=== PATIENT | female | born 1985 | race Two or more races ===

== ENCOUNTER 2020-09-23 17:04 | Inpatient (IN) | payer MEDICAID, SELFPAY ==
[2020-09-23 18:15] VITALS: BP 143/67; PULSE 75; RESP 18; TEMP 36.9; O2SAT 100; BMI 20.7
--- NOTE | 2020-09-23 21:59 | ED.GENADULT ---
HPI - General Adult General Chief complaint: Psychiatric Symptoms Stated complaint: DEPRESSION Time Seen by Provider: 09/23/20 21:50 Source: patient Mode of arrival: ambulatory Limitations: no limitations History of Present Illness HPI narrative: 34-year-old female who presents to the emergency department for evaluation of depression and suicidal ideation. The patient states she has had depression for many years and has been in counseling but has never been on medications. She states that she has been depressed over the past 2 months and these symptoms have been constant and getting worse. She states that the depression was triggered by moving to [place] and she just moved back to this area yesterday. She states that she feels like she wants to kill herself and she states that on Monday, 5 days prior to arrival, she drank a whole bottle of vodka in order to try to kill herself. She states she does not have a specific plan at this time but she is worried that she may hurt herself. The patient has no chronic medical problems except for her depression, she does have insomnia and takes melatonin for her insomnia. She states that she lives with her boyfriend and 3 children. She states that her youngest child is 3 years old an after the she had post prior and anxiety. She denies being ill in any other way, she denies fever, chills, myalgias, arthralgias, diarrhea, cough, loss of sense of taste or smell, chest pain or shortness of breath. Related Data Home Medications Medication Instructions Recorded Confirmed melatonin 10 mg PO BEDTIME 09/23/20 09/23/20 Allergies Allergy/AdvReac Type Severity Reaction Status Date / Time No Known Allergies Allergy Unverified 04/09/20 17:22 Review of Systems Review of Systems: Yes all other systems are reviewed and are negative Neurologic: Reports Abnormal speech present [facility] Past Medical History [facility] Narrative: Patient has a history of depression treated with therapy, anxiety, she denies tobacco and alcohol use. She states that recently she tried THC gummies in order to help with her insomnia. She lives with her boyfriend and 3 children. Social History Social History Alcohol intake: never Smoking Status: Never smoker Use of substances other than those prescribed or required for medical reasons: No Advance Directives: No Advance Directives Information Provided: Yes Physical Exam Vital Signs: Vital Signs: Last Vital Signs Temp 97.7 F 09/23/20 23:51 Pulse 60 09/24/20 05:46 Resp 16 09/24/20 05:46 BP 108/67 09/24/20 05:46 Pulse Ox 100 09/24/20 05:46 Body Mass Index 20.7 Const: General: cooperative and healthy appearing Orientation/consciousness: oriented to person and oriented to place Limitations: no limitations HENMT: Head: Yes normal to inspection, Yes normocephalic and Yes atraumatic Ears: external ears normal General nose exam: Normal external nose present Face and sinus: Yes normal facial exam Mouth: Normal oral and palatal mucosa present Throat: Yes posterior oropharynx normal Eyes: Periorbital: periorbital findings normal Eyelids: Yes eyelids normal Conjunctivae: conjunctivae normal Sclerae: sclerae normal Corneas: corneas normal Pupils: Equal, round and reactive pupils present Direct Ophthalmoscopy: normal light reflex Neck: Neck: Yes full ROM, Yes no lymphadenopathy, Yes no meningeal signs, Yes trachea midline and Yes supple Chest: Chest palpation & inspection: normal inspection of the chest and normal palpation of entire chest wall Resp: Effort & Inspection: normal respiratory effort and able to speak in complete sentences Auscultation: clear to auscultation bilaterally Cardio: Rate: regular rate Rhythm: regular rhythm Heart sounds: S1 normal heart sound present, S2 normal heart sound present and no murmurs GI: Inspection: Yes normal to inspection Palpation (GI): Soft to palpation, nontender, no guarding, not rigid and No hepatosplenomegaly present : General: Yes no CVA tenderness Back/Spine/Pelvis: Back: no CVA tenderness Cervical Spine: normal cervical lordosis Thoracic/Lumbar Spine: thoracic and lumbar spine normal to inspection Skin: Lesions: no lesions Rashes: no rashes Wounds: no wounds Neuro: General: oriented to person, oriented to place and no meningeal signs Cranial nerves: Yes CN's II-XII intact bilaterally and Yes Equal, round and reactive pupils present Cognition (Neuro): normal cognition Speech: Abnormal speech present Motor exam (neuro): 5/5 motor strength present throughout Extrem: General: Yes normal to inspection and Yes full ROM Psych: Appearance: well kempt Mental Status: mental status grossly normal Speech and movement: Normal speech and movement present Affect: normal affect Attitude: cooperative Thought process: Normal thought process present Thought content: Normal thought content present Course Course Course Narrative: 34-year-old female with a history of depression presents to the emergency department for worsening depression x2 months and suicidal ideation with a suicide attempt 5 days prior, she drank a bottle of walk because she wanted to . Patient states that she is suicidal at this time but has no plans. I did order laboratory evaluation on this patient. I did order a N consult on the patient. [id number]: The patient's laboratory evaluation was unremarkable. Patient's urine tox screen was negative. Patient's alcohol level was below detectable limits. Patient's Tylenol and salicylate levels were below detectable limits. The patient is medically cleared and is waiting for crisis evaluation. At the end of my shift, the patient's care was turned over to my colleague, Dr. Greer Rincon. Medical Decision Making Lab Data Result diagrams: 09/23/20 22:27 09/23/20 22:27 Labs: Lab Results 09/23/20 09/23/20 09/23/20 Range/Units 22:27 22:27 22:27 WBC 5.2 (4.8-10.8) X10*3/uL RBC 4.41 (4.20-5.50) X10*6/uL Hgb 12.9 (12.0-16.0) g/dl Hct 37.8 (37-47) % MCV 85.7 (80-98) fL MCH 29.3 (27.0-33.0) pg MCHC 34.1 (31.0-35.0) g/dl RDW 12.3 (11.0-16.0) % Plt Count 328 (160-400) X10*3/uL MPV 10.1 (9.4-12.3) fL Immature Gran % (Auto) 0.2 (0.0-0.4) % Neut % (Auto) 44.4 L (45-73) % Lymph % (Auto) 45.5 H (20-40) % [place] % (Auto) 9.1 (2-11) % Eos % (Auto) 0.4 (0-4) % Baso % (Auto) 0.4 (0-2) % Lymph # (Auto) 2.4 (1.2-4.9) X10*3/uL [place] # (Auto) 0.5 (0.1-1.2) X10*3/uL Eos # (Auto) 0.0 (0.0-0.4) X10*3/uL Baso # (Auto) 0.0 (0.0-0.2) X10*3/uL Abs Immat Gran (auto) 0.01 (0.00-0.03) X10*3/uL Absolute Neuts (auto) 2.3 (2.0-8.3) X10*3/uL Absolute Nucleated RBC 0.000 (0.0-0.012) X10*3/uL Nucleated RBC % (auto) 0.0 (0.0-0.2) /100WBC Carbon Dioxide 27 (22-29) mmol/L BUN 17 H (9-16) mg/dL Creatinine 0.73 (0.5-1.4) mg/dL Estim Creat Clear Calc 71.4 Estimated GFR > 60 Random Glucose 98 (60-115) mg/dL Calcium 9.4 (8.4-10.2) mg/dL Total Bilirubin 2.7 H (0.0-1.0) mg/dL AST 15 (5-31) U/L ALT 9 (0-31) U/L Alkaline Phosphatase 61 (39-117) U/L Total Protein 7.5 (6.5-8.0) g/dL Albumin 4.5 (3.5-5.0) g/dL Urine Test (NEGATIVE) Salicylates < 5.0 L (15-30) mg/dL Urine Opiates Screen (Not Detect) Acetaminophen < 1 (<30) mcg/mL Ur Barbiturates Screen (Not Detect) Ur Phencyclidine Scrn (Not Detect) Ur Amphetamines Screen (Not Detect) U Benzodiazepines Scrn (Not Detect) Urine Cocaine Screen (Not Detect) U Marijuana (THC) Screen (Not Detect) Ethyl Alcohol < 10 mg/dL 09/23/20 09/23/20 Range/Units 23:56 23:56 WBC (4.8-10.8) X10*3/uL RBC (4.20-5.50) X10*6/uL Hgb (12.0-16.0) g/dl Hct (37-47) % MCV (80-98) fL MCH (27.0-33.0) pg MCHC (31.0-35.0) g/dl RDW (11.0-16.0) % Plt Count (160-400) X10*3/uL MPV (9.4-12.3) fL Immature Gran % (Auto) (0.0-0.4) % Neut % (Auto) (45-73) % Lymph % (Auto) (20-40) % [place] % (Auto) (2-11) % Eos % (Auto) (0-4) % Baso % (Auto) (0-2) % Lymph # (Auto) (1.2-4.9) X10*3/uL [place] # (Auto) (0.1-1.2) X10*3/uL Eos # (Auto) (0.0-0.4) X10*3/uL Baso # (Auto) (0.0-0.2) X10*3/uL Abs Immat Gran (auto) (0.00-0.03) X10*3/uL Absolute Neuts (auto) (2.0-8.3) X10*3/uL Absolute Nucleated RBC (0.0-0.012) X10*3/uL Nucleated RBC % (auto) (0.0-0.2) /100WBC Carbon Dioxide (22-29) mmol/L BUN (9-16) mg/dL Creatinine (0.5-1.4) mg/dL Estim Creat Clear Calc Estimated GFR Random Glucose (60-115) mg/dL Calcium (8.4-10.2) mg/dL Total Bilirubin (0.0-1.0) mg/dL AST (5-31) U/L ALT (0-31) U/L Alkaline Phosphatase (39-117) U/L Total Protein (6.5-8.0) g/dL Albumin (3.5-5.0) g/dL Urine Test NEGATIVE (NEGATIVE) Salicylates (15-30) mg/dL Urine Opiates Screen Not Detected (Not Detect) Acetaminophen (<30) mcg/mL Ur Barbiturates Screen Not Detected (Not Detect) Ur Phencyclidine Scrn Not Detected (Not Detect) Ur Amphetamines Screen Not Detected (Not Detect) U Benzodiazepines Scrn Not Detected (Not Detect) Urine Cocaine Screen Not Detected (Not Detect) U Marijuana (THC) Screen Not Detected (Not Detect) Ethyl Alcohol mg/dL Discharge Plan Discharge Prescriptions: No Action melatonin 10 mg Tablet 10 mg PO BEDTIME RF: 0
[2020-09-23 22:20] VITALS: BP 122/69; PULSE 67; RESP 16; TEMP 37.1; O2SAT 99
[2020-09-23 22:38] LABS: Basophils Percent Auto 0.4 % (0-2); Eosinophils Percent Auto 0.4 % (0-4); Hematocrit 37.8 % (37-47); Hemoglobin 12.9 g/dl (12.0-16.0); Imm Gran Abs Auto 0.01 X10*3/uL (0.00-0.03); Imm Gran Pct Auto 0.2 % (0.0-0.4); Lymphocytes Absolute Auto 2.4 X10*3/uL (1.2-4.9); Lymphocytes Percent Auto 45.5 % (20-40); MANUAL DIFF FLAG NO; Mean Corpuscular HGB Conc 34.1 g/dl (31.0-35.0); Mean Corpuscular Hemoglobin 29.3 pg (27.0-33.0); Mean Corpuscular Volume 85.7 fL (80-98); Mean Platelet Volume 10.1 fL (9.4-12.3); Monocytes Absolute Auto 0.5 X10*3/uL (0.1-1.2); Monocytes Percent Auto 9.1 % (2-11); Neutrophils Absolute Auto 2.3 X10*3/uL (2.0-8.3); Neutrophils Percent Auto 44.4 % (45-73); Platelet Count 328 X10*3/uL (160-400); Red Blood Count 4.41 X10*6/uL (4.20-5.50); Red Cell Distribution Width 12.3 % (11.0-16.0); White Blood Count 5.2 X10*3/uL (4.8-10.8)
[2020-09-23 22:56] LABS: Ethanol < 10 mg/dL
--- NOTE | 2020-09-23 23:05 | PC.NURSE ---
Pt very cooperative with care, pleasant. Denies needs or complaints at this time.
[2020-09-23 23:51] VITALS: BP 108/62; PULSE 64; RESP 18; TEMP 36.5; O2SAT 98
[2020-09-24] VITALS (9 sets, daily range): BP systolic 98–108; BP diastolic 48–67; PULSE 60–73; RESP 15–20; TEMP 36.5–36.9; O2SAT 97–100
[2020-09-24] LABS: Acetaminophen LAB < 1 mcg/mL (<30); Salicylate < 5.0 mg/dL (15-30)
[2020-09-24 00:07] LABS: UPreg QC Valid YES; Urine Pregnancy NEGATIVE (NEGATIVE)
[2020-09-24 00:26] LABS: Amphetamine Screen Urine Not Detected (Not Detect); Barbiturates, Urine Not Detected (Not Detect); Benzodiazepines Screen Urine Not Detected (Not Detect); Cannabinoid Screen Urine Not Detected (Not Detect); Cocaine Screen Urine Not Detected (Not Detect); Opiate Screen Urine Not Detected (Not Detect); Phencyclidine Screen Urine Not Detected (Not Detect)
--- NOTE | 2020-09-24 01:11 | PC.NURSE ---
Fax and call to [facility].
[2020-09-24] MEDS: LORazepam 1 MG TABLET PO (05:43)
--- NOTE | 2020-09-24 05:47 | PC.NURSE ---
Pt requesting something to sleep. Pt medicated with Ativan per MAR. VSS. Pt provided with a warm blanket for comfort. Awaiting BHN consult. Continue to monitor.
[2020-09-24 06:57] LABS: Alanine Aminotransferase 9 U/L (0-31); Albumin Level 4.5 g/dL (3.5-5.0); Alkaline Phosphatase 61 U/L (39-117); Aspartate Amino Transferase 15 U/L (5-31); Bilirubin Total 2.7 mg/dL (0.0-1.0); Blood Urea Nitrogen 17 mg/dL (9-16); Calcium 9.4 mg/dL (8.4-10.2); Carbon Dioxide 27 mmol/L (22-29); Creatinine Clr Calc Pharmacy 71.4; Estimated Glomerular Filt Rate > 60; Glucose Random 98 mg/dL (60-115); Total Protein 7.5 g/dL (6.5-8.0)
--- NOTE | 2020-09-24 07:34 | PC.NURSE ---
REPORT FROM MANISHA. PT AWAITING EVAL BY [facility] FOR SI. SITTER INPLACE. ATE BREAKFAST. CALM AND COOPERATIVE
[2020-09-24 07:51] LABS: Anion Gap 14 (12-20); Chloride 102 mmol/L (96-108); Potassium 3.2 mmol/L (3.3-5.1); Sodium 140 mmol/L (135-145)
--- NOTE | 2020-09-24 08:59 | PC.NURSE ---
PT SLEEPING. REMAINS WITH SITTER. AWAITING Izaiah GARLAND.
--- NOTE | 2020-09-24 13:12 | PC.NURSE ---
Pt transferred from Main Ed- pt thu guerra. oriented to unit. Pt reports increasing depression x2 months w/ SI. Pt aware she is awaiting BHN consult.
[2020-09-24 13:29] LABS: COVID-19 Test Negative (Negative)
--- NOTE | 2020-09-24 15:41 | PC.NURSE ---
Called [facility] report that they did not receive information on her. Information faxed, and reported to Erinn at [facility].
--- NOTE | 2020-09-24 16:49 | PC.NURSE ---
Pt resting, resp unlabored.
[2020-09-24] MEDS: Potassium Chloride ER 20 MEQ TAB.ER.PRT 60 MEQ PO (18:12)
--- NOTE | 2020-09-24 18:30 | PC.NURSE ---
Pt ate dinner- labs reported to A Edin, potassium given as ordered. Awaiting privacy specialist- care team aware.
--- NOTE | 2020-09-24 19:41 | PC.NURSE ---
Received report from Bethany, called care team and was notified that they communicating with N, if there is no N clinician available, care team will assess the patient. Patient currently in bed apppears sleeping, no distress observed/reported, will continue to monitor.
--- NOTE | 2020-09-24 21:05 | PC.NURSE ---
Patient is with BHN, seems fully engaged, will continue to monitor.
--- NOTE | 2020-09-24 22:05 | PC.NURSE ---
GABRIELLA completed the assessment, patient's disposition is section 12 in patient bed search. Patient and provider aware, patient calm and quiet at this time, no distress reported, will continue to monitor.
--- NOTE | 2020-09-25 07:10 | PC.NURSE ---
Report received from CELSO Harrison. Pt resting, resp unlabored.
[2020-09-25 08:00] VITALS: RESP 18
[2020-09-25 10:00] VITALS: RESP 20
--- NOTE | 2020-09-25 10:51 | PC.NURSE ---
Pt resting, resp unlabored.
[2020-09-25 12:34] VITALS: BP 102/71; PULSE 84; RESP 16; TEMP 36.2; O2SAT 96
--- NOTE | 2020-09-25 12:40 | PC.NURSE ---
Pt out in common area, eating. pt reports she feels sad, but no SI- states she misses her three children. Pt educated re: inpatient process.
--- NOTE | 2020-09-25 13:10 | PC.NURSE ---
Report given to CELSO Cunningham on M 5
[2020-09-25 14:00] VITALS: RESP 20
--- NOTE | 2020-09-25 15:09 | PC.NURSE ---
Care team in to transfer pt to M5. Pt alert, cooperative w/ transfer, no concerns reported.
[2020-09-25 17:18] VITALS: BP 115/60; PULSE 78; TEMP 36.8
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
[2020-09-25] MEDS: traZODone HCL 50 MG TABLET PO (21:33)
[2020-09-26 06:05] VITALS: BP 109/67; PULSE 72; RESP 16; TEMP 36.9; O2SAT 98
[2020-09-26 09:45] LABS: Free T4 (Free Thyroxine) 1.11 ng/dL (0.71-1.85); Thyroid Stimulating Hormone 0.95 uIU/mL (0.32-4.0)
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
[2020-09-26] MEDS: clonazePAM 0.5 MG TABLET PO ×2 (16:37→22:18)
[2020-09-26 18:00] VITALS: BP 99/58; PULSE 70; TEMP 36.6
[2020-09-26 18:39] VITALS: BP 101/58; PULSE 72
[2020-09-26] MEDS: Melatonin 3 MG TABLET 9 MG PO (22:18)
[2020-09-26] MEDS: Mirtazapine 7.5 MG TABLET PO (22:18)
[2020-09-27 06:10] VITALS: BP 114/57; PULSE 66; RESP 14; TEMP 36.2; O2SAT 100
[2020-09-27] MEDS: clonazePAM 0.5 MG TABLET PO ×2 (08:37→20:24)
[2020-09-27 18:00] VITALS: BP 97/57; PULSE 89; TEMP 36.6
[2020-09-27] MEDS: Mirtazapine 7.5 MG TABLET PO (20:24)
--- NOTE | 2020-09-27 23:54 | HO.PSYCHPN ---
Subjective Subjective Date of Service: 09/27/20 Reason For Visit: Major Depression Subjective Notes: Conditional Voluntary Interim History: Patient depressed anxious withdrawn felt sedated in the morning able to take in material regarding recurrent depression has been trying to problem solve current situation Medication Compliance: Yes Side effects from medications: Yes Mental Status Exam Mental Status Exam Patient Appearance: Appropriate Patient Orientation: Person, Place, Time and Situation Level of Consciousness: Awake Patient Behavior: Appropriate, Anxious and Good Eye Contact Mood Description: Depressed, Anxious, Flat and Sad Affect Description: Depressed and Blunted Memory Description: Intact Hallucinations: None Thought Process: Intact and Rumination Thought Content: positive for Linear Depressive Symptoms: Increased Anxiety, Difficulty Sleeping, Changes in Appetite, Feelings of Worthlessness, Hopelessness and Increased Fatigue Judgement: Fair Judgement and Insight: Patient was able to accept Education and information regarding diagnosis medication and other options Diagnostics Vital Signs (24Hr): Vital Signs - 24 hr 09/27/20 06:10 09/27/20 18:00 Temperature 97.2 F 97.9 F Pulse Rate 66 89 Respiratory Rate 14 Blood Pressure 114/57 L 97/57 L Pulse Oximetry 100 Body Mass Index 20.7 Labs Results: 09/23/20 22:27 09/23/20 22:27 Labs: Laboratory Results - last 48 hr 09/26/20 08:26 TSH 0.95 Free T4 1.11 Medications Medications Current Medications Generic Name Dose Route Start Last Admin Trade Name Garethq PRN Reason Stop Dose Admin Acetaminophen 650 mg 09/25/20 14:37 Acetaminophen 325 Mg Tablet PO Q6H PRN Headache/Pain Mild Scale (1-3) Al Hydroxide/Mg Hydroxide 30 ml 09/25/20 14:37 Magnesium Hydrox/Alum Hydrox 30 Ml Oral.Susp PO Q6H PRN Heartburn/Nausea Clonazepam 0.5 mg 09/26/20 16:20 09/27/20 20:24 Clonazepam 0.5 Mg Tablet PO 0.5 mg BID TAYLA Administration Escitalopram Oxalate 5 mg 09/28/20 09:00 Escitalopram Oxalate 5 Mg Tablet PO DAILY TAYLA Hydroxyzine HCl 25 mg 09/25/20 14:37 Hydroxyzine Hcl 25 Mg Tablet PO BEDTIME PRN Anxiety Magnesium Hydroxide 30 ml 09/25/20 14:37 Milk Of Magnesia 30 Ml Oral.Susp PO DAILY PRN Constipation Melatonin 9 mg 09/25/20 21:00 03/07/21 20:25 Melatonin 3 Mg Tablet PO Not Given BEDTIME TAYLA Trazodone HCl 50 mg 09/25/20 14:37 09/25/20 21:33 Trazodone Hcl 50 Mg Tablet PO 50 mg BEDTIME PRN Administration Insomnia Allergies Allergies Allergy/AdvReac Type Severity Reaction Status Date / Time No Known Allergies Allergy Unverified 04/09/20 17:22 Assessment & Plan Assessment & Plan (1) Major depressive disorder, recurrent episode with anxious distress: Status: Acute Code(s): F33.9 - Major depressive disorder, recurrent, unspecified Assessment and Plan: Stop mirtazapine secondary to sedation start Lexapro continue clonazepam patient flat dysphoric trying to problem self agreeable to possible partial hospital setting post discharge she will have to stop problems of with her partner her situation status post moved to [place] Greater than 50% of the session was spent on counseling and/or coordination of care Reason for contiued inpatient stay Substantial Risk for: harm to self and rapid decompensation
[2020-09-28 04:22] LABS: Folate 16.7 ng/mL (> or = 4.0); Vitamin B12 201 pg/mL (200-900)
[2020-09-28 06:10] VITALS: BP 110/64; PULSE 70; RESP 16; TEMP 37; O2SAT 100
[2020-09-28] MEDS: Escitalopram Oxalate 5 MG TABLET PO (08:41)
[2020-09-28] MEDS: clonazePAM 0.5 MG TABLET PO ×2 (08:42→21:32)
[2020-09-28 17:53] VITALS: BP 101/68; PULSE 72; TEMP 36.3
[2020-09-28] MEDS: Melatonin 3 MG TABLET 9 MG PO (21:32)
[2020-09-29 06:10] VITALS: BP 96/62; PULSE 78; RESP 18; TEMP 37.1; O2SAT 100
[2020-09-29] MEDS: Escitalopram Oxalate 5 MG TABLET PO (08:28)
[2020-09-29] MEDS: clonazePAM 0.5 MG TABLET PO (08:29)
--- NOTE | 2020-09-29 12:38 | PC.NURSE ---
PT VERBALIZES READINESS FOR DISCHARGE. PTRATES HER DEPRESSION A 2/10 AND ANXIETY A 3/10. PT DENIES ANY SUICIDAL OR HOMICIDAL IDEATIONS. PT DECLINES AUDITORY OR VISUAL HALLUCINATIONS. PT STATED THAT LONG SHE IS IN THIS AREA SHE FEELS BETTER . PT HAS A PLAN IN PLACE TO MOVE BACK HOME WITH HER PARENTS AROUND THIS AREA INSTEAD OF GOING BACK TO [place]. PT IS GOAL ORIENTED AND MED COMPLIANT. PT HAS BEEN EDUCATED ON MEDICATIONS AND VERBALIZES UNDERSTANDING. PTS PAPERWORK HAS BEEN FAXED TO PCP PER PROTOCOL AND APPOINTMENTS HAVE BEEN ARRANGED.
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
== END 2020-09-29 14:05 | disposition home or self-care (01) | DRG 751 ==
LOC: HO.ED 09-25 11:41 → HO.PM5 09-25 14:41
PROVIDERS: Clinical Nurse Specialist Psychiatric/Mental Health, Adult; Physician Assistant Medical; Admitting Provider Psychiatry & Neurology Psychiatry; Emergency Provider Emergency Medicine Emergency Medical Services; Visit Provider Social Worker
DX: F33.9 Major depressive disorder, recurrent, unspecified (principal); Z91.5 Personal history of self-harm; Z20.822 Contact with and (suspected) exposure to COVID-19; Z79.899 Other long term (current) drug therapy
CPT/HCPCS: 36415; 80053; 80143; 80179; 80307; 80320; 81025; 82607; 82746; 84439; 84443; 85025; 87635; 99285